=== PATIENT | male | born 1950 | race Caucasian/White ===

== ENCOUNTER 2019-12-25 11:16 | Outpatient (CLI) | payer MEDICARE, BC ==
[2019-12-25 12:11] LABS: ALBUMIN 3.5 g/dL (3.4-5.0); BILIRUBIN,TOTAL 0.9 mg/dL (0.2-1.0); CREATININE 1.3 mg/dL (0.6-1.3); POTASSIUM 4.1 mmol/L (3.5-5.1); TOTAL PROTEIN, SERUM 7.3 g/dL (6.4-8.2)
== END 2019-12-25 23:59 | disposition home or self-care (01) ==
LOC: CARD 11:16
PROVIDERS: ATTEND Internal Medicine Interventional Cardiology
DX: I10 Essential (primary) hypertension (principal); M79.89 Other specified soft tissue disorders; M79.605 Pain in left leg; M79.604 Pain in right leg
CPT/HCPCS: 36415; 80053-TC; 93970-TC